=== PATIENT | male | born 1975 | race Caucasian/White ===

== ENCOUNTER → 2022-03-04 | Outpatient (CLI) | payer OTHER | LOC: COL.VAS 13:50 | DX: I08.0 Rheumatic disorders of both mitral and aortic valves (principal); I11.9 Hypertensive heart disease without heart failure ==

== ENCOUNTER → 2024-03-15 | Outpatient (CLI) | payer OTHER | LOC: COL.VAS 08:28 | DX: I08.0 Rheumatic disorders of both mitral and aortic valves (principal) ==